=== PATIENT | male | born 1990 | race Two or more races ===

== ENCOUNTER 2020-11-09 12:46 | Emergency (ER) | payer OTHER ==
[~2020-11-09] VITALS: Ht 152.4 cm; Wt 78.9 kg
[2020-11-09] MEDS ORDERED: KETO10TA2 PO (16:23)
[2020-11-09] MEDS ORDERED: CYCLOBENZAPRINE10 MG PO (16:23)
[2020-11-09] MEDS ORDERED: TYLENOL325 MG (16:35)
== END 2020-11-09 14:26 | disposition home or self-care (01) ==
LOC: ER 12:46
DX: G44.209 Tension-type headache, unspecified, not intractable (principal); M62.838 Other muscle spasm